=== PATIENT | male | born 1970 | race Two or more races ===

== ENCOUNTER 2021-11-01 18:53 | Emergency (ER) | payer SELFPAY ==
[2021-11-01 19:07] VITALS: BP 152/89
--- NOTE | 2021-11-01 20:02 | XRAY Report ---
PROCEDURE: Hand 3 View RT INDICATIONS: Trauma TECHNIQUE: 3 views of the hand acquired. COMPARISON: None. FINDINGS: Bones: No acute fractures or dislocations. No suspicious bony lesions. Soft tissues: No suspicious soft tissue calcifications. Soft tissue irregularity seen at the distal middle finger. IMPRESSION: No acute osseous abnormality. If there is clinical concern or persistent symptoms, additional imaging such as repeat radiographs or advanced imaging (e.g. CT, MRI) may be helpful for further evaluation. Reviewed by: Jhony Cruz MD on 11/01/2021 8:01 PM PDT Approved by: Jhony Cruz MD on 11/01/2021 8:01 PM PDT Station ID: [id number]
[2021-11-01] MEDS ORDERED: LIDOCAINE 2% 10 ML MDV SUBQ ONE (20:36)
[2021-11-01] MEDS: cephALEXin 250 MG CAPSULE PO STA (20:39)
[2021-11-01] MEDS ORDERED: lidocaine 1% 20 ML MDV ONE (20:52)
--- NOTE | 2021-11-01 21:14 | ED Physician Documentation ---
History of Present Illness - Stated complaint Stated Complaint: RT FINGER LAC/INJ - Chief complaint Chief Complaint: Laceration - History obtained from History obtained from: Patient - History of Present Illness Timing: Today Pain level max: 3 Pain level now: 2 - Additonal information Additional information: 51-year-old male with a laceration to the right middle finger tip. Tetanus is up-to-date. This was while he was working on a boat propeller. Nothing makes it better or worse. No active bleeding. No numbness or tingling. Review of Systems Constitutional: denies: Fever, Chills GI: denies: Vomiting PD PAST MEDICAL HISTORY - Past Medical History Past Medical History: No - Past Surgical History Past Surgical History: No - Present Medications Home Medications: Ambulatory Orders Medication Instructions Recorded Confirmed cephALEXin [Keflex] 500 mg PO Q6H #28 cap 11/01/21 - Allergies Allergies/Adverse Reactions: Allergies Allergy/AdvReac Type Severity Reaction Status Date / Time No Known Drug Allergies Allergy Verified 11/01/21 19:01 - Social History Does the pt smoke?: No Smoking Status: Never smoker Does the pt drink ETOH?: No Does the pt have substance abuse?: No - Immunizations Immunizations are current?: Yes Immunizations: TDAP current <10years PD ED PE NORMAL - Vitals Vital signs reviewed: Yes - General General: Alert and oriented X 3, No acute distress - Derm Derm: Warm and dry - Extremities Extremities: Other (small flap laceration tip of r 3rd digit. NVI. no nail injury.) - Neuro Neuro: Alert and oriented X 3 Results - Vitals Vitals: Vital Signs - 24 hr 11/01/21 19:01 Temperature 37.1 C Heart Rate 83 Respiratory 16 Rate Blood Pressure 152/89 H O2 Saturation 97 Oxygen O2 Source Room air - Rads (name of study) R hand xray Radiology: Final report received, EMP read contemporaneously, See rad report PD MEDICAL DECISION MAKING - ED course Complexity details: reviewed results, considered differential, d/w patient ED course: No fractures on x-ray. There is a small flap laceration to the distal portion of the right third digit. This was cleansed with chlorhexidine and saline. Tetanus is up-to-date. The flap is well adhered. There is no laceration to sew. There is no subungual hematoma. Dermabond was applied to the area. A splint was then applied to protect the area. Patient counseled regarding signs of infection and wound care. Patient counseled regarding signs and symptoms for which I believe an urgent reevaluation would be needed. Patient with good understanding and agreement to plan. Patient comfortable going home at this time. Departure - Departure Disposition: 01 Home, Self Care Clinical Impression: Finger laceration Qualifiers: Encounter type: initial encounter Finger: middle finger Damage to nail status: without damage Foreign body presence: without foreign body Laterality: right Qualified Code(s): S61.212A - Laceration without foreign body of right middle finger without damage to nail, initial encounter Condition: Good Instructions: ED Laceration Ext Skin Glue Follow-Up: your,doctor in 1 week for wound check [Other] - Within 1 week Prescriptions: cephALEXin [Keflex] 500 mg PO Q6H #28 cap Comments: Your prescriptions were sent to the [facility] pharmacy. Take all antibiotics until gone. Keep the wound clean. Do not apply ointment as this may dissolve the glue. Return if you worsen. You can change the dressing tomorrow. Discharge Date/Time: 11/01/21 21:21
== END 2021-11-01 21:21 | disposition home or self-care (01) ==
LOC: ED 18:53
DX: S61.212A Laceration without foreign body of right middle finger without damage to nail, initial encounter (principal); W31.89XA Contact with other specified machinery, initial encounter; Y93.89 Activity, other specified
CPT/HCPCS: 73130; 99282; 99283; A9270